=== PATIENT | female | born 1990 | race Caucasian/White ===

== ENCOUNTER 2021-03-27 21:55 | Emergency (ER) | payer OTHER, BC ==
[~2021-03-27] VITALS: Ht 157.5 cm; Wt 104.5 kg
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
[2021-03-27 22:24] VITALS: BP 163/106
--- NOTE | 2021-03-27 23:48 | RAD ---
INDICATION: Reason: injury, MED. WRIST PAIN INTO PROXIMAL MED. HAND / Spl. Instructions: / History: COMPARISON: None. IMPRESSION: Left wrist: 3 views obtained. No acute fracture or dislocation. Left hand: 3 views obtained. No acute fracture or dislocation. Electronically signed by: John Harding MD (03/27/2021 11:45 PM) [id number]
== END 2021-03-27 23:53 | disposition home or self-care (01) ==
LOC: ER 21:55
DX: S63.502A Unspecified sprain of left wrist, initial encounter (principal); Z88.0 Allergy status to penicillin; W23.0XXA Caught, crushed, jammed, or pinched between moving objects, initial encounter; Y93.89 Activity, other specified; Y92.89 Other specified places as the place of occurrence of the external cause; Y99.8 Other external cause status
CPT/HCPCS: 29125; 73110; 73130; 99284